=== PATIENT | female | born 1970 | race African-American/Black ===

== ENCOUNTER 2017-01-18 08:55 | Inpatient (IN) ==
--- NOTE | 2017-01-18 09:23 | EKG Report ---
Stationary ECG Study [facility] ER Test Date: 01/18/2017 8:58:29 AM Pat Name: MARCO A AVALOS Department: Room: Gender: F Car Pre Cooler: Reta Medina : 1970 Requested by: Miki Leahy Order Number: [id number] Reading MD: REECE PARKS Intervals [place] Rate: 141 P: 999 TX: 0 QRS: 80 QRSD: 93 T: 31 QT: 305 QTc: 387 Interpretive Statements ATRIAL FIBRILLATION WITH RAPID VENTRICULAR RESPONSE Electronically Signed On 01-19-17 18:25:46 CDT by REECE PARKS [email or web address]
[2017-01-18] MEDS ORDERED: DILTIAZEM 50 MG/10 ML VIAL IV STA (09:35)
[2017-01-18 09:50] LABS: Basophils % 0.4 % (0.0-0.8); Eosinophils # 0.1 10*3/uL (0.0-0.87); Eosinophils % 1.6 % (0.00-10.9); Hematocrit 43.4 VOL% (35.7-47.0); Immature Granulocytes % 0.1 %; Immature Granulocytes Absolute 0.01 #; Lymphocytes # 3.5 10*3/uL (1.4-4.0); Mean Corpuscular HGB Conc 32.3 GM/DL (32-36); Mean Corpuscular Hemoglobin 25 PG (27-34); Mean Corpuscular Volume 77.1 FL (87-102); Mean Platelet Volume 10.4 FL (9.6-12.0); Monocytes # 0.6 10*3/uL (0.11-0.8); Monocytes % 7.4 % (1.7-12.7); Neutrophils % 48.5 % (38.7-73.9); Platelet Count 318 T/CUMM (130-400); Red Blood Count 5.63 MC/CUMM (3.8-5.5); Red Cell Distribution Width 14.5 % (9.3-17.3); White Blood Count 8.2 T/CUMM (4-12)
[2017-01-18] MEDS ORDERED: DILTIAZEM 100 MG VIAL.ADD IV ONE (09:50)
[2017-01-18] MEDS ORDERED: SODIUM CHLORIDE 0.9% 100 ML IV ONE (09:50)
[2017-01-18] MEDS ORDERED: DILTIAZEM 50 MG/10 ML VIAL IV ONE (09:50)
--- NOTE | 2017-01-18 09:54 | XRay Report ---
XR chest 1V portable Indication: Shortness of breath Comparison: 20 November 2014 Findings: The heart and mediastinum are normal in size and configuration. The pulmonary vascularity is normal in caliber. No lung infiltrates, effusions, pneumothorax or other abnormality is demonstrated. Impression: No acute cardiopulmonary disease. PROCEDURE INTERPRETED AT [facility] DEPARTMENT OF RADIOLOGY Final Report Signed by: Dr. Spike Archer
[2017-01-18] MEDS ORDERED: SODIUM CHLORIDE 0.9% 500 ML IV STA (09:57)
[2017-01-18] MEDS ORDERED: DILTIAZEM INJ 100 MG in SODIUM CHLORIDE 0.9% 100 ML IV SCH (10:00)
[2017-01-18 10:11] LABS: Alanine Aminotransferase 21 U/L (13-56); Albumin 3.3 G/DL (3.4-5.0); Alkaline Phosphatase 104 U/L (45-117); Aspartate Amino Transferase 17 U/L (0-37); Bilirubin,Total < 0.39 MG/DL (0.2-1.0); Blood Urea Nitrogen 12 MG/DL (7-18); Calcium 8.7 MG/DL (8.5-10.1); Glucose 132 MG/DL (74-106); Osmolality,Calculated 284.1 MOS/KG (273-304); Potassium 3.8 MMOL/L (3.5-5.1); Sodium 142 MMOL/L (136-145); Total Protein 7.7 G/DL (6.4-8.3); Troponin I Only < 0.015 NG/ML (0.00-0.045)
[2017-01-18 10:18] LABS: PT Patient Result 10.3 SECS
[2017-01-18] MEDS ORDERED: guaiFENesin/DM ER 600-30 MG TABLET PO PRN (11:58)
[2017-01-18] MEDS ORDERED: ONDANSETRON 4 MG/2 ML VIAL IV PRN (11:58)
[2017-01-18] MEDS ORDERED: ZALEPLON 5 MG CAPSULE PO PRN (11:58)
[2017-01-18 12:29] LABS: Risk Ratio 5.71; Thyroid Stimulating Hormone 2.29 uIU/ml (0.358-3.74); VLDL CHOLESTEROL 45.4 MG/DL
--- NOTE | 2017-01-18 12:32 | Emergency Department Note ---
Wilman Sandoval Brittany, am scribing for, and in the presence of, Hleder Middleton MD 09:32. Kane Sandoval Doug C, MD, personally performed the services described in this documentation, ascribed by Ghazal Stovall in my presence, and it is both accurate and complete . Arrival - Arrival Chief Complaint: Chest Pain Stated Complaint: CHEST PAIN/SOB ED Nursing Triage Note: c/o Having chest pain since 299, states the pain woke her up from sleep., denies having nausea., + SOB., Denies the pain radiating to the arm or the neck, states the pain is tightness Mode of Arrival: Ambulatory Limitations: No Limitations Source: Patient, RN Notes Reviewed Time Seen by Provider: 01/18/17 09:12 - History of Present Illness HPI Narrative: Patient is a 46-year-old black female states she was awakened at 3 AM with her heart racing, pounding and substernal chest pain. Patient states the pain has been constant since onset and she has some mild shortness of breath when she denies any nausea, vomiting or diaphoresis. Patient states this is identical to her previous bout of atrial fibrillation she had about 2 years ago. She denies any radiation of her discomfort and she states she is not having any neck arm or shoulder discomfort. She has no history of coronary artery disease and told she had a stress test performed at that time which was unremarkable. She is still on Coumadin and has had a prior history of DVT. She did not get her PT/INR checked last month. Onset (ago): hour(s) (6) Consistency: constant Severity: moderate Severity scale (1-10): 7 Quality: other (pressure) Allergies/Adverse Reactions: Allergies Allergy/AdvReac Type Severity Reaction Status Date / Time No Known Allergies Allergy Verified 01/18/17 08:59 Home Medications: Home Medications Medication Instructions Recorded Confirmed Type Albuterol Inhaler [Proventil 2 puffs INH DIRECTED PRN 05/16/16 05/16/16 History Inhaler] Lisinopril/Hctz 10-12.5 [Prinzide 1 tablet PO DAILY 05/16/16 05/16/16 History 10-12.5] Warfarin [Coumadin] 10 mg PO DAILY@1800 05/16/16 05/16/16 History Review of System - Review of System 12 point system: reviewed and no additional remarkable complaints except as stated - Review of System Constitutional: Absent: chills, diaphoresis, fever, weakness Eyes: Absent: vision change Head/Ears/Nose/Throat: Absent: nasal drainage, sore throat Respiratory: Present: respiratory distress Cardiovascular: Present: chest pain Gastrointestinal: Absent: abdominal pain, nausea, vomiting, diarrhea, constipation Genitourinary female: Absent: dysuria, frequency, urgency Musculoskeletal: Absent: arm pain, back pain, leg pain, neck pain Skin: Absent: rash Neurological: Present: vertigo. Absent: headache Psychiatric: Present: anxiety (stress). Absent: depression Hematological/Lymphatic: Absent: easy bleeding, easy bruising Medical,Surgical,& Family Hx - Medical History Cardio: History of: Cardiac Dysrhythmia (a-fib), Hypertension HEENT: History of: Eye Problem (GLASSES) Respiratory: History of: Asthma, Bronchitis Musculoskeletal: History of: Musculoskeletal Problems (R KNEE PAIN) Hematology: History of: Clotting Problems (DVT RLE) - Surgical History HEENT Surgeries: Surgical HX of: Thyroid Surgery, Tonsilectomy & Adenoidectomy Reproductive Surgeries: Surgical HX of;: Hysterectomy Orthopedic Surgeries: Surgical HX of;: Orthopedic Surgery (R KNEE SCOPE) - Family History Family History: noncontributory - Social History Smoking Status: Never smoker Frequency of Alcohol Use: None Type of Drug Use: None Exam Vital Signs: Vital Signs Temperature 98.3 F 01/18/17 09:05 Pulse Rate 99 H 01/18/17 09:05 Respiratory Rate 18 01/18/17 09:14 Blood Pressure 124/109 01/18/17 09:05 O2 Sat by Pulse Oximetry 100 01/18/17 08:56 - General General appearance: alert, in no apparent distress - Head Head exam: Present: atraumatic, normocephalic - Eye Eye exam: Present: PERRL, EOMI - ENT ENT exam: Present: normal oropharynx, mucous membranes moist - Neck Neck exam: Present: normal inspection, full ROM, trachea midline - Chest Chest inspection: Present: normal inspection, symmetric chest wall rise - Respiratory Respiratory exam: Present: normal lung sounds bilaterally - Cardiovascular Cardiovascular exam: Present: tachycardia, irregular rhythm, normal heart sounds. Absent: regular rate, normal rhythm, murmur, rubs, gallop - Abdominal Exam Abdominal exam: Present: soft, normal bowel sounds. Absent: distention, tenderness - Extremities Exam Extremities exam: Present: normal inspection. Absent: pedal edema - Back Exam Back exam: Present: normal inspection - Neurological Exam Neurological exam: Present: alert, oriented X3, CN II-XII intact. Absent: motor sensory deficit - Psychiatric Psychiatric exam: Present: normal affect, normal mood - Skin Skin exam: Present: warm, dry Course Course Narrative: Patient's clinical presentation laboratory and radiographic findings were discussed with tex Bernard who is covering for the hospitalist service. She was seen here in the emergency room evaluated for admission. Patient was started on IV Cardizem and her heart rates is approximately 100 bpm at present. Results - Labs CBC & BMP: 01/18/17 09:19 01/18/17 09:19 Lab Results: I have reviewed the patients labs Labs: Laboratory Tests 01/18/17 09:19 WBC 8.2 RBC 5.63 H Hgb 14.0 Hct 43.4 MCV 77.1 L MCH 25 L Plt Count 318 Laboratory Tests 01/18/17 09:19 Sodium 142 Potassium 3.8 Chloride 109 H Carbon Dioxide 26 BUN 12 Creatinine 0.70 Glucose 132 H Troponin I < 0.015 Albumin 3.3 L Globulin 4.4 H Albumin/Globulin Ratio 0.7 L TSH 3rd Generation 2.320 Laboratory Tests 01/18/17 09:19 INR 1.0 PT Patient/Control Mix 10.3 - EKG EKG results: interpreted by [facility] EKG shows: atrial fibrillation (141 bpm) - Diagnostic Findings Procedure: Chest x-ray: report reviewed by me (No acute cardiopulmonary disease. ) Disposition Clinical Impression: Atrial fibrillation with rapid ventricular response Case discussed with: patient Disposition: Still a Patient Condition: Stable Time of Disposition: 12:32
--- NOTE | 2017-01-18 12:38 | CT Report ---
CT chest pulmonary embolism Indication: Chest pain Comparison: None available Technique: Axial CT imaging of the chest is performed with intravenous contrast. Contrast dose is 80 cc of Omnipaque 350. Findings: No thrombus or other abnormality is identified in the pulmonary arteries or veins. The pulmonary vessel caliber is within normal limits. The heart, mediastinum and great vessels appear within normal limits. Lung parenchyma shows no evidence of airspace disease or abnormal density. No effusion or pneumothorax is present. Impression: No evidence of pulmonary thromboembolism or other acute process demonstrated. This CT exam was performed using one or more the following dose reduction techniques: Automated exposure control, adjustment of the MA and/or KV according to patient size, or use of iterative reconstruction technique. PROCEDURE INTERPRETED AT [facility] DEPARTMENT OF RADIOLOGY Final Report Signed by: Dr. Spike Archer
--- NOTE | 2017-01-18 12:45 | Hospitalist History & Physical ---
Assessment and Plan - Time spent with patient Time spent with patient: Greater than 30 minutes (1) Atrial fibrillation with RVR Status: Acute Assessment and plan: Admit 01/18/17 - Tele bed - ACUTE A-Fib w/ RVR - chronic a-fib continue and titrate cardiazem infusion CT Chest - done in ER - NO PE Venous Doppler - legs: in progress in the ED 8 - awaiting completion consult cardiology - never seen cardiology per patient Will discuss with Dr Parra for further recommendations of care. Current Visit: Yes (2) Chest pain Status: Acute Current Visit: Yes History of Present Illness Chief complaint: chest tightness, shortness of breath History of present illness: Ms. Kearns is a 46 year old black female w/PMHx of right leg DVT (took coumadin x2 years but is off), Hypertension, and A-Fib presented to the ED for further evaluation of chest tightness and shortness of breath worsened with exertion. She reports similar occurrence 2 years ago and was diagnosed with Afib but has never seen a environmental remediation engineer. She reports having a DVT right leg about 2 years ago and reports treatment with coumadin but that she was taken off her coumadin and is not taking any type blood thinner. She denies any calf/ leg pain. She denies nausea, vomiting, cough, fever, or chills. IN ED: she was given bolus and cardiazem infusion started, heart rate in 80s on infusion. H&H stable. Glucose 132. Toponin negative. CXR: nothing acute. Chest CT: no evidence of pulmonary thrombembolism or acute process noted. Venous doppler in progress. She denies smoking, drug or alcohol use. She lives at home srinath her sons and ambulates without assistance. PCP: Dr Cates After discuss with Dr Middleton in ED and Dr Parra with Hospital Medicine it was agreed to admit patient for further evaluation. Home medications to be reviewed and reconciliation to follow. Home Medications Medication Instructions Recorded Confirmed Type Albuterol Inhaler [Proventil 2 puffs INH DIRECTED PRN 05/16/16 05/16/16 History Inhaler] Lisinopril/Hctz 10-12.5 [Prinzide 1 tablet PO DAILY 05/16/16 05/16/16 History 10-12.5] Warfarin [Coumadin] 10 mg PO DAILY@1800 05/16/16 05/16/16 History Allergies Allergy/AdvReac Type Severity Reaction Status Date / Time No Known Allergies Allergy Verified 01/18/17 08:59 Medical,Surgical,& Family Hx - Medical History Cardio: History of: Cardiac Dysrhythmia (a-fib), Hypertension HEENT: History of: Eye Problem (GLASSES) Respiratory: History of: Bronchitis Musculoskeletal: History of: Musculoskeletal Problems (R KNEE PAIN) Hematology: History of: Clotting Problems (DVT RLE) - Surgical History HEENT Surgeries: Surgical HX of: Thyroid Surgery, Tonsilectomy & Adenoidectomy Reproductive Surgeries: Surgical HX of;: Hysterectomy Orthopedic Surgeries: Surgical HX of;: Orthopedic Surgery (R KNEE SCOPE) - Social History Smoking Status: Never smoker Frequency of Alcohol Use: None Type of Drug Use: None Lives With:: Children Functional capacity: independent ambulation 12 point system: reviewed and no additional remarkable complaints except as stated - Constitutional Constitutional: Absent: chills, fever(s), headache(s) - Cardiovascular Cardiovascular: Present: chest pain at rest, chest pain with activity (chest tightness) - Respiratory Respiratory: Present: dyspnea, dyspnea on exertion. Absent: cough Exam - Constitutional Vitals: Period Temp Pulse Resp BP Sys/Triplett Pulse Ox Last 24 Hr 98.3 F-98.3 F 99-99 16-18 124-124/109-109 100 General appearance: no acute distress, over weight - Head Head exam: Present: normal inspection - Eye Eye exam: Present: EOMI Pupils: Present: GENEVA - Neck Neck exam: Present: normal inspection. Absent: thyromegaly - Respiratory Respiratory exam: Present: clear to auscultation bilaterally. Absent: rhonchi, stridor, wheezes - Cardiovascular Cardiovascular exam: Present: irregular rhythm (afib with HR 80) - GI/Abdominal GI/Abdominal exam: Present: normal bowel sounds, soft. Absent: tenderness, rebound - Extremities Exam Extremities exam: Present: normal inspection, full ROM. Absent: edema - Neurological Exam Neurological exam: Present: alert, oriented X3, CN II-XII intact - Psychiatric Psychiatric exam: Present: normal affect, normal mood. Absent: agitated, anxious - Skin Skin exam: Present: normal color, warm, dry Results - Labs CBC & BMP: 01/18/17 09:19 01/18/17 09:19 Lab Results: I have reviewed the past 24 hour labs - EKG EKG results: interpreted by ERMD - Diagnostic Findings Procedure: Chest x-ray: report reviewed by me (Nothing acute), CT - chest: report reviewed by me (No evidence of pulmonary thromboembolism or other acute process demenstrated)
--- NOTE | 2017-01-18 12:56 | Ultrasound Report ---
Venous Doppler ultrasound bilateral lower extremities Indication: Edema Comparison: None available Findings: No evidence of echogenic, noncompressible thrombus seen in the visualized veins of the extremities. Color Doppler venous waveform pattern is within normal limits. Impression: No evidence of deep venous thrombosis. Ultrasound images stored and captured. PROCEDURE INTERPRETED AT [facility] DEPARTMENT OF RADIOLOGY Final Report Signed by: Dr. Spike Archer
[2017-01-18] MEDS ORDERED: MORPHINE 2 MG/1 ML SYRINGE IV PRN (12:57)
[2017-01-18] MEDS ORDERED: ENOXAPARIN 40 MG/0.4 ML SYRINGE SUBCUT SCH (14:00)
--- NOTE | 2017-01-18 14:03 | Cardiology Consult Note ---
Addendum entered and electronically signed by Maribell Saeed NP 01/18/17 15:13 : Hyperglycemia. Hemoglobin A1c ordered. Addendum entered and electronically signed by Maribell Saeed NP 01/18/17 15:07 : Hypokalemia noted. PO potassium replacement protocol ordered as this could have contributed to her RVR. Magnesium within acceptable range. Thyroid studies normal. Lipid panel reviewed. Triglycerides remarkably high at 227. [place]-3 added. Original Note: Assessment and Plan - Time spent with patient Time spent with patient: Greater than 30 minutes (1) Atrial fibrillation with RVR Status: Acute Assessment and plan: SEE PLAN OF CARE LISTED BELOW. Current Visit: Yes (2) Dyspnea on exertion Status: Chronic Assessment and plan: SEE PLAN OF CARE LISTED BELOW. Current Visit: Yes (3) Orthopnea Status: Acute Assessment and plan: SEE PLAN OF CARE LISTED BELOW. Current Visit: Yes (4) TEENA (obstructive sleep apnea) Status: Chronic Assessment and plan: SEE PLAN OF CARE LISTED BELOW. Current Visit: Yes (5) History of DVT (deep vein thrombosis) Status: Chronic Assessment and plan: SEE PLAN OF CARE LISTED BELOW. Current Visit: No (6) Obesity (BMI 30-39.9) Status: Chronic Assessment and plan: SEE PLAN OF CARE LISTED BELOW. Current Visit: Yes History of Present Illness - Data of Consult Patient: new to practice Consult date: 01/18/17 Requesting Physician: Marleni Hernandez Primary care physician: Franco Cates - Consult Narrative Reason for consult: A. 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 Cardenas PCP: Dr. Neal Ms. Kearns is a 46 year old female without known history of coronary artery disease, not routinely followed by cardiology. Cardiac desserts factors include : Obesity and hypertension. Lifetime non-smoker. No significant family history of CAD. Past medical history includes: Atrial fibrillation, DVT and obstructive sleep apnea (wears CPAP nightly). She reports having a cardiac stress test in 2009 in [place] which was abnormal. Subsequently, she was recommended to have left heart catheterization. This was performed and per her report was unremarkable. This was also performed in [place]. She has not followed up with cardiology since that time. She reports that she was placed on Coumadin for stroke prevention and DVT prophylaxis. However, this was discontinued at least one year ago for unknown reasons. She reports that she never had any bleeding complications with Coumadin. Patient presented to the hospital this morning with complaints of heart palpitations, shortness of breath, chest tightness and dizziness. She reports developing heart racing/palpitations after eating a slushy and developing a brain freeze last night. She had similar case in 2009 when she was diagnosed with atrial fibrillation. She reports that she has been on Coumadin in the past for stroke prevention and DVT prophylaxis. This was discontinued at least one year ago for unknown reasons. She also reports that ever since being diagnosed with A. fib in 2009 she has experienced dyspnea on exertion. She is now longer able to exercise as she did before or even sitting in her [employer] choir. She was worked up for this in [place] with cardiac stress test as well as left heart catheterization. She reports that her heart cath was negative. She is without exertional chest pain, heaviness or tightness. She does confirm orthopnea. No lower extremity swelling. Her palpitations continued until early this morning. This concerned her and she felt that she needed to be further evaluated in the emergency department. Upon arrival to the ER, she was noted to be in A. fib RVR. IV Cardizem was initiated with bolus. She was admitted to telemetry unit under hospital medicine's service. Cardiology was consulted to further assist in her management of A. fib. Patient was seen and examined the telemetry unit. She continues to be in atrial fibrillation, now rate controlled with IV Cardizem. I will transition her to p.o. I have also added beta-blockade. [id number] vasc score 3. I have discussed with patient anticoagulation options. She has opted for Coumadin due to inadequate funds. She does not feel as though she can afford NOAC. Coumadin initiated. Daily INR. Target 2-3. I have also ordered echocardiogram. I will further discuss with Dr. Cardenas and await his additional recommendations. IMPRESSION AND PLAN: 1. ATRIAL FIBRILLATION WITH RAPID VENTRICULAR RESPONSE - This appears to be paroxysmal A. fib. She is currently on IV Cardizem. She is rate controlled with this. I will transition her to p.o. I have also added beta-blockade. [id number] vasc score 3. I have discussed with patient anticoagulation options. She has opted for Coumadin due to inadequate funds. She does not feel as though she can afford NOAC. Coumadin initiated. Daily INR. Target 2-3. Echocardiogram pending. I will further discuss with Dr. Cardenas and await his additional recommendations. 2. OBSTRUCTIVE SLEEP APNEA - CPAP nightly. 3. HISTORY OF DVT - Will begin Coumadin for DVT prophylaxis. 4. CHRONIC DYSPNEA ON EXERTION - She reports dyspnea on exertion ever since she was first diagnosed with atrial fibrillation in 2009. She was worked up for this in 2009 with a stress test and heart catheterization. Heart catheterization was negative per her report. This was done in [place]. At this point, we will order echocardiogram. Await results of this study. Further recommendations to follow. PE has been ruled out. 5. OBESITY - Encouraged weight loss with dietary restriction and regular exercise. 6. ORTHOPNEA - Echocardiogram ordered. CC: Osorio Parra MD - Home Medications and Allergies Home Medications: Home Medications Medication Instructions Recorded Confirmed Type Albuterol Inhaler [Proventil 2 puffs INH DIRECTED PRN 05/16/16 01/18/17 History Inhaler] Olmesartan/Hydrochlorothiazide 0.5 tablet PO BEDTIME 01/18/17 01/18/17 History [Benicar Hct 40-12.5 mg Tablet] Allergies/Adverse Reactions: Allergies Allergy/AdvReac Type Severity Reaction Status Date / Time No Known Allergies Allergy Verified 01/18/17 08:59 - Constitutional Constitutional: Present: as per HPI, daytime sleepiness, fatigue, weakness. Absent: chills, fever(s), frequent falls, lethargy, malaise, weight gain, weight loss - Cardiovascular Cardiovascular: Present: as per HPI, chest pain at rest, dyspnea, dyspnea on exertion, lightheadedness, orthopnea, palpitations. Absent: chest pain with activity, diaphoresis, edema, radiating jaw, neck or arm pain, PND - Respiratory Respiratory: Present: as per HPI, dyspnea, dyspnea on exertion, snoring. Absent : hemoptysis, wheezing, pain on inspiration, change in phlegm color - Gastrointestinal Gastrointestinal: Present: as per HPI. Absent: abdominal pain, change in bowel habits, coffee ground emesis, constipation, diarrhea, heartburn, hematemesis, hematochezia, loose stools, melena, nausea, vomiting - Neurological Neurological: Present: as per HPI, dizziness. Absent: abnormal gait, abnormal speech, behavioral changes, frequent falls, headache(s), syncope - Psychiatric Psychiatric: Present: as per HPI. Absent: anxiety, depression, panic attacks - Hematologic/Lymphatic Hematologic/Lymphatic: Present: as per HPI. Absent: easy bleeding, easy bruising Medical,Surgical,& Family Hx - Medical History Cardio: History of: Cardiac Dysrhythmia (a-fib), Hypertension HEENT: History of: Eye Problem (GLASSES) Respiratory: History of: Asthma, Bronchitis Musculoskeletal: History of: Musculoskeletal Problems (R KNEE PAIN) Hematology: History of: Clotting Problems (DVT RLE) - Surgical History Cardiac Surgeries: Sugical HX of: Cardiac Catheterization Thoracic Surgeries: Patient denies;: Lobectomy HEENT Surgeries: Surgical HX of: Thyroid Surgery, Tonsilectomy & Adenoidectomy Reproductive Surgeries: Surgical HX of;: Gynecologic Surgery, Hysterectomy Orthopedic Surgeries: Surgical HX of;: Orthopedic Surgery (R KNEE SCOPE) - Family History Family History: Reports;: Family Anesthesia Reaction (GRANDMOTHER), Family Cancer (MOTHER FATHER), Family Hypertension (MOTHER SISTER), Additional Family History (SISTER WITH ANEMIA) - Social History Smoking Status: Never smoker Frequency of Alcohol Use: None Type of Drug Use: None Marital Status: Single Lives With:: Alone Functional capacity: independent ambulation Physical Examination Vital Signs Temp Pulse Resp BP Pulse Ox 98.3 F 99 H 16 124/109 100 01/18/17 08:56 01/18/17 08:56 01/18/17 08:56 01/18/17 08:56 01/18/17 08:56 Exam: General: Appears well with no apparent distress. Pleasant and cooperative. Appears comfortable. Obese. HEENT: PERRL, normocephalic, atraumatic. Mucous membranes moist. No jaundice noted. Conjunctiva moist and clear, sclerae anicteric Neck: No JVD/HJR, no thyromegaly or lymphadenopathy noted. No carotid bruit appreciated Cardiac: Irregular rhythm, rate controlled. no murmur rub or gallop. Lungs: Clear to auscultation without accessory muscle use to assist the respiratory pattern. Not requiring oxygen. Abdomen: Soft, bowel sounds normoactive. Obese. Nontender and nondistended. No abdominal bruit or thrill noted. No masses noted. Extremities: No clubbing, cyanosis noted. No edema noted. Upper extremity pulses 2+. Lower extremity pulses 2+. Capillary refill less than 3 seconds. Skin: No unusual lesions or rashes. No skin breakdown appreciated. Neuro: Awake, alert and oriented 3. Moves all extremities well without hemiparesis or paralysis. No essential tremor is appreciated. Result/EKG - Labs CBC & BMP: 01/18/17 09:19 01/18/17 09:19 Lab Results: I have reviewed the past 24 hour labs Labs: Laboratory Results - last 24 hr 01/18/17 01/18/17 01/18/17 09:19 09:19 09:19 WBC 8.2 RBC 5.63 H Hgb 14.0 Hct 43.4 MCV 77.1 L MCH 25 L MCHC 32.3 RDW 14.5 Plt Count 318 MPV 10.4 Neut % (Auto) 48.5 Lymph % (Auto) 42.0 [place] % (Auto) 7.4 Eos % (Auto) 1.6 Baso % (Auto) 0.4 Neut # (Auto) 4.0 Lymph # (Auto) 3.5 [place] # (Auto) 0.6 Eos # (Auto) 0.1 Baso # (Auto) 0.0 Immature Gran % 0.1 Nucleated RBC % 0.0 Immature Gran # 0.01 Nucleated RBCs # 0.00 Immature Plt Fraction 0.0 INR 1.0 PT Patient/Control Mix 10.3 Sodium 142 Potassium 3.8 Chloride 109 H Carbon Dioxide 26 Anion Gap 10.8 BUN 12 Creatinine 0.70 GFR Calculation 163 BUN/Creatinine Ratio 17.00 Glucose 132 H Calculated Osmolality 284.1 Calcium 8.7 Magnesium Total Bilirubin < 0.39 AST 17 ALT 21 Alkaline Phosphatase 104 Troponin I < 0.015 Total Protein 7.7 Albumin 3.3 L Globulin 4.4 H Albumin/Globulin Ratio 0.7 L Triglycerides Cholesterol LDL Cholesterol VLDL Cholesterol HDL Cholesterol Heart Disease Risk Ratio TSH 3rd Generation 2.320 01/18/17 09:19 WBC RBC Hgb Hct MCV MCH MCHC RDW Plt Count MPV Neut % (Auto) Lymph % (Auto) [place] % (Auto) Eos % (Auto) Baso % (Auto) Neut # (Auto) Lymph # (Auto) [place] # (Auto) Eos # (Auto) Baso # (Auto) Immature Gran % Nucleated RBC % Immature Gran # Nucleated RBCs # Immature Plt Fraction INR PT Patient/Control Mix Sodium Potassium Chloride Carbon Dioxide Anion Gap BUN Creatinine GFR Calculation BUN/Creatinine Ratio Glucose Calculated Osmolality Calcium Magnesium 2.0 Total Bilirubin AST ALT Alkaline Phosphatase Troponin I Total Protein Albumin Globulin Albumin/Globulin Ratio Triglycerides 227 H Cholesterol 194 LDL Cholesterol 133.0 VLDL Cholesterol 45.4 HDL Cholesterol 34 L Heart Disease Risk Ratio 5.71 TSH 3rd Generation 2.290 - EKG EKG results: interpreted by me EKG shows: atrial fibrillation
[2017-01-18 15:36] LABS: Apearance,Urine CLEAR (Clear); Bilirubin,Urine Negative (Negative); Blood, Urine Negative (Negative); Glucose,Urine (UA) Negative (Negative); Ketones,Urine Negative (Negative); Mucus,Urine Occasional /LPF (Occasional); Nitrite,Urine Negative (Negative); Protein,Urine Negative; RBC,Urine <1 /HPF (0-4); Squamous Epithelial Cell,Urine Occasional /HPF (0-10); Urine Color Straw (Yellow); Urine Specific Gravity 1.047 (1.001-1.035); Urine Urobilinogen < 2.0 EU/DL (0.2-1.0); WBC,Urine <1 /HPF (0-6)
[2017-01-18] MEDS: DILTIAZEM CD 120 MG CAPSULE PO SCH ×2 (15:47→20:57)
[2017-01-18] MEDS: METOPROLOL SUCCINATE XL 50 MG TABLET PO SCH (15:48)
[2017-01-18] MEDS ORDERED: ENOXAPARIN 80 MG/0.8 ML SYRINGE SUBCUT SCH (16:00)
--- NOTE | 2017-01-18 16:04 | ECHO Report ---
Mickey Kearns Exam Date: 01/18/2017 14:43 Referring Physician: Technologist: Sofiya Ty Age: 46 Ht (in): 60 Wt (lb): 267 Gender: F Exam [facility]: [facility] Echo Indications: chest pain, SOB, A fib, SPK BP: 124 / 109 HR: 286 Rhythm: Atrial fibrillation Technical Quality: IMPRESSIONS Technically adequate study Normal chamber sizes 1+ concentric LVH Hyperdynamic LV systolic function with ejection fraction estimated be 70% without segmental wall motion abnormality No significant valvular abnormality Atrial fibrillation noted with controlled rate MEASUREMENTS (Male / Female) Normal Values 2D ECHO LV Diastolic Diameter PLAX 4.8 cm 4.2 - 5.9 / 3.9 - 5.3 cm LV Systolic Diameter PLAX 2.7 cm LV Fractional Shortening PLAX 43.7 % IVS Diastolic Thickness 1.1 cm 0.6 - 1.0 / 0.6 - 0.9 cm LVPW Diastolic Thickness 1.1 cm 0.6 - 1.0 / 0.6 - 0.9 cm RV Internal Dim ED PLAX 3.3 cm Aortic Root Diameter 2.2 cm LA Systolic Diameter LX 3.2 cm 3.0 - 4.0 / 2.7 - 3.8 cm FINDINGS Left Ventricle Mildly increased septal wall thickness. Mildly increased posterior wall thickness. Mild concentric left ventricular hypertrophy. Left ventricular ejection fraction is estimated at 50-55 %. Right Ventricle Normal right ventricular size. Right Atrium Normal right atrial size. Left Atrium Normal left atrial size. Mitral Valve Morphologically normal mitral valve. Aortic Valve The aortic valve is trileaflet and has normal motion. Tricuspid Valve Morphologically normal tricuspid valve. Pulmonic Valve Morphologically normal pulmonic valve. Pericardium No pericardial effusion. Aorta Normal size aortic root and proximal ascending aorta. Jose Cardenas (Electronically Signed) Final Date: 18 January 2017 16:03
[2017-01-18 17:21] LABS: Barbiturates Screen,Urine Negative (Negative); Benzodiazepines Screen,Urine Negative (Negative); Cannabinoid Screen,Urine Negative (Negative); Opiate Screen,Urine Negative (Negative); Phencyclidine Screen,Urine Negative (Negative)
[2017-01-18] MEDS ORDERED: ALUM/MAG/SIMETH/LIDO VISC 1:1 30 ML BOTTLE PO ONE (17:42)
[2017-01-18] MEDS ORDERED: WARFARIN 5 MG TABLET PO SCH (18:00)
[2017-01-18] MEDS: POTASSIUM CHLORIDE 20 MEQ TABLET PO PRN (19:08)
[2017-01-18] MEDS: DOCUSATE SODIUM 100 MG CAPSULE PO SCH (20:53)
[2017-01-18] MEDS: OMEGA 3 ACID ETHYL ESTERS 1 GM CAPSULE PO SCH (20:53)
[2017-01-18] MEDS: APIXABAN 5 MG TABLET PO SCH (20:57)
[2017-01-19 04:56] LABS: Basophils % 0.4 % (0.0-0.8); Eosinophils # 0.1 10*3/uL (0.0-0.87); Eosinophils % 1.3 % (0.00-10.9); Hematocrit 38.4 VOL% (35.7-47.0); Hemoglobin 12.3 GM/DL (12.0-16.0); Immature Granulocytes % 0.1 %; Immature Granulocytes Absolute 0.01 #; Lymphocytes # 3.5 10*3/uL (1.4-4.0); Lymphocytes % 44.7 % (21.3-54.2); Mean Corpuscular Hemoglobin 25 PG (27-34); Mean Corpuscular Volume 76.6 FL (87-102); Mean Platelet Volume 10.5 FL (9.6-12.0); Monocytes # 0.5 10*3/uL (0.11-0.8); Monocytes % 6.2 % (1.7-12.7); Neutrophils # 3.7 10*3/uL (1.4-7.4); Neutrophils % 47.3 % (38.7-73.9); Platelet Count 282 T/CUMM (130-400); Red Blood Count 5.01 MC/CUMM (3.8-5.5); Red Cell Distribution Width 14.7 % (9.3-17.3); White Blood Count 7.9 T/CUMM (4-12)
[2017-01-19 05:02] LABS: INR 1.1; PT Patient Result 11.1 SECS
[2017-01-19 05:29] LABS: Calcium 8.8 MG/DL (8.5-10.1); Potassium 4.1 MMOL/L (3.5-5.1)
--- NOTE | 2017-01-19 07:31 | EKG Report ---
Stationary ECG Study 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
--- NOTE | 2017-01-19 08:10 | Hospitalist Progress Note ---
Assessment and Plan - Time spent with patient Time spent with patient: Less than 30 minutes (1) Atrial fibrillation with RVR Status: Acute Assessment and plan: 46-year-old -Malaysian female with history of right leg DVT not on anticoagulation, TEENA, hypertension, and A. fib admitted by the hospitalist service on 01/18/2017 with acute A. fib with RVR. Echocardiogram shows EF of 70% , venous Dopplers negative for DVT, and CT the chest negative for PE. Cardiology has been consulted and she has been started on Eliquis for anticoagulation. She is on diltiazem p.o. and metoprolol. She was hypotensive this morning but this is improved to 109/67 at 8 AM. She is bradycardic with a pulse rate in the 50s. Cardiology to see her this morning. Her labs are relatively normal. She does have an elevated hemoglobin A1c of 6.8. Will get diabetes educators consulted and when she follows up with her PCP Dr. Neal he will need to follow her blood sugars as well. Home when cardiology okays. Dr. Parra will see and examine patient and further recommendations to follow. Current Visit: Yes (2) History of DVT (deep vein thrombosis) Status: Chronic Current Visit: No (3) Obesity (BMI 30-39.9) Status: Chronic Current Visit: Yes Hospitalist: Subjective Interval history: Patient states she did not sleep well last night. She states the bed is uncomfortable so she slept on the couch. She is complaining of fatigue and headache this morning. Exam - Constitutional Vitals: Period Temp Pulse Resp BP Sys/Triplett Pulse Ox Last 24 Hr 96.9 F-98.6 F 51-99 16-20 87-152/51-109 94-100 Exam: 46-year-old -Malaysian female, no acute distress, alert and oriented Chest clear CV irregularly irregular, bradycardic Abdomen obese, nontender Extremities no edema Results - Labs CBC & BMP: 01/19/17 04:29 01/19/17 04:29 Lab Results: I have reviewed the past 24 hour labs - EKG EKG shows: bradycardia
[2017-01-19] MEDS: ACETAMINOPHEN 325 MG TABLET PO PRN ×2 (08:26→13:59)
[2017-01-19] MEDS: PANTOPRAZOLE 40 MG TABLET PO SCH (09:23)
[2017-01-19] MEDS: APIXABAN 5 MG TABLET PO SCH ×2 (09:23→20:48)
[2017-01-19] MEDS: DOCUSATE SODIUM 100 MG CAPSULE PO SCH ×2 (09:23→20:48)
--- NOTE | 2017-01-19 09:25 | EKG Report ---
Stationary ECG Study [facility] Test Date: 01/19/2017 9:26:54 AM Pat Name: MARCO A AVALOS Department: Room: 286 Gender: F Emt I/99: : 1970 Requested by: Maribell Saeed Order Number: [id number] Reading MD: ANGELIC GONZALES Intervals [place] Rate: 55 P: 999 NC: 0 QRS: 34 QRSD: 158 T: 183 QT: 485 QTc: 473 Interpretive Statements UNCERTAIN REGULAR RHYTHM LEFT BUNDLE BRANCH BLOCK Electronically Signed On 01-24-17 10:45:25 CDT by ANGELIC GONZALES [email or web address]
[2017-01-19] MEDS: METOPROLOL SUCCINATE XL 50 MG TABLET PO SCH (10:05)
[2017-01-19] MEDS: DILTIAZEM CD 120 MG CAPSULE PO SCH (10:06)
--- NOTE | 2017-01-19 11:25 | Cardiology Progress Note ---
Assessment and Plan (1) Chest pain Status: Acute Assessment and plan: 1. Ms. Ortega is feeling fatigued this morning likely related to her mild bradycardia and her modest hypotension; will discontinue diltiazem and simply treat with Toprol 50 mg daily and observe. 2. She appears to have diabetes with A1c of 6.8, and so tomorrow could reintroduce ARB if blood pressure allows? 3. Continue Eliquis, told her to make sure that she gets her free 30 day card before she leaves. 4. She can be discharged tomorrow if she is doing reasonably well clinically " I think I am too scared to go home now" 5. Check electrolytes and hematocrit in the morning 6. Atypical chest pain yesterday evening improved with GI cocktail, and I highly suspect it is related to GERD. Current Visit: Yes (2) Atrial fibrillation with RVR Status: Acute Current Visit: Yes (3) History of DVT (deep vein thrombosis) Status: Chronic Current Visit: No Cardiology - PN: Subj Interval history: She had some chest pain yesterday that improved with GI cocktail in the evening. Her troponins have been negative. Her only complaint today is fatigue. She denies any chest discomfort or shortness of breath now. Her blood pressure heart rate are both a little low earlier this morning. Exam (Progress Note) - Constitutional Vitals: Period Temp Pulse Resp BP Sys/Triplett Pulse Ox Last 24 Hr 96.9 F-98.6 F 51-86 18-20 87-152/51-105 94-98 - Head Head exam: Present: normal inspection, normocephalic, atraumatic - Respiratory Respiratory exam: Present: clear to auscultation bilaterally. Absent: stridor, wheezes - Cardiovascular Cardiovascular exam: Present: irregular rhythm. Absent: diastolic murmur, rubs , systolic murmur - GI/Abdominal GI/Abdominal exam: Present: soft. Absent: tenderness - Extremities Exam Extremities exam: Absent: edema Result/EKG - Labs CBC & BMP: 01/19/17 04:29 01/19/17 04:29 Labs: Laboratory Results - last 24 hr 01/18/17 01/18/17 01/18/17 09:19 15:27 18:39 WBC RBC Hgb Hct MCV MCH MCHC RDW Plt Count MPV Neut % (Auto) Lymph % (Auto) [place] % (Auto) Eos % (Auto) Baso % (Auto) Neut # (Auto) Lymph # (Auto) [place] # (Auto) Eos # (Auto) Baso # (Auto) Immature Gran % Nucleated RBC % Immature Gran # Nucleated RBCs # Immature Plt Fraction INR PT Patient/Control Mix Sodium Potassium Chloride Carbon Dioxide Anion Gap BUN Creatinine GFR Calculation BUN/Creatinine Ratio Glucose Hemoglobin A1c 6.8 H Calculated Osmolality Calcium Magnesium 2.0 Troponin I < 0.015 B-Natriuretic Peptide Triglycerides 227 H Cholesterol 194 LDL Cholesterol 133.0 VLDL Cholesterol 45.4 HDL Cholesterol 34 L Heart Disease Risk Ratio 5.71 TSH 3rd Generation 2.290 Urine Color Urine Appearance Urine pH Ur Specific [place] Urine Protein Urine Glucose (UA) Urine Ketones Urine Blood Urine Nitrate Urine Bilirubin Urine Urobilinogen Urine Leukocytes Urine RBC Urine WBC Ur Squamous Epith Cells Urine Mucus Ur Culture Indicated? Urine Opiates Screen Ur Barbiturates Screen Ur Phencyclidine Scrn U Amphetamine/Methamph U Benzodiazepines Scrn U Cocaine Metab Screen U Cannabinoids Screen 01/18/17 01/18/17 01/18/17 21:08 Unknown Unknown WBC RBC Hgb Hct MCV MCH MCHC RDW Plt Count MPV Neut % (Auto) Lymph % (Auto) [place] % (Auto) Eos % (Auto) Baso % (Auto) Neut # (Auto) Lymph # (Auto) [place] # (Auto) Eos # (Auto) Baso # (Auto) Immature Gran % Nucleated RBC % Immature Gran # Nucleated RBCs # Immature Plt Fraction INR PT Patient/Control Mix Sodium Potassium Chloride Carbon Dioxide Anion Gap BUN Creatinine GFR Calculation BUN/Creatinine Ratio Glucose Hemoglobin A1c Calculated Osmolality Calcium Magnesium Troponin I < 0.015 B-Natriuretic Peptide Triglycerides Cholesterol LDL Cholesterol VLDL Cholesterol HDL Cholesterol Heart Disease Risk Ratio TSH 3rd Generation Urine Color Straw Urine Appearance Clear Urine pH 7.0 Ur Specific [place] 1.047 H Urine Protein Negative Urine Glucose (UA) Negative Urine Ketones Negative Urine Blood Negative Urine Nitrate Negative Urine Bilirubin Negative Urine Urobilinogen < 2.0 H Urine Leukocytes Negative Urine RBC <1 Urine WBC <1 Ur Squamous Epith Cells Occasional Urine Mucus Occasional Ur Culture Indicated? Not indicated Urine Opiates Screen Negative Ur Barbiturates Screen Negative Ur Phencyclidine Scrn Negative U Amphetamine/Methamph Negative U Benzodiazepines Scrn Negative U Cocaine Metab Screen Negative U Cannabinoids Screen Negative 01/19/17 01/19/17 01/19/17 00:03 04:29 04:29 WBC RBC Hgb Hct MCV MCH MCHC RDW Plt Count MPV Neut % (Auto) Lymph % (Auto) [place] % (Auto) Eos % (Auto) Baso % (Auto) Neut # (Auto) Lymph # (Auto) [place] # (Auto) Eos # (Auto) Baso # (Auto) Immature Gran % Nucleated RBC % Immature Gran # Nucleated RBCs # Immature Plt Fraction INR 1.1 PT Patient/Control Mix 11.1 Sodium Potassium Chloride Carbon Dioxide Anion Gap BUN Creatinine GFR Calculation BUN/Creatinine Ratio Glucose Hemoglobin A1c Calculated Osmolality Calcium Magnesium 2.1 Troponin I < 0.015 B-Natriuretic Peptide Triglycerides Cholesterol LDL Cholesterol VLDL Cholesterol HDL Cholesterol Heart Disease Risk Ratio TSH 3rd Generation Urine Color Urine Appearance Urine pH Ur Specific [place] Urine Protein Urine Glucose (UA) Urine Ketones Urine Blood Urine Nitrate Urine Bilirubin Urine Urobilinogen Urine Leukocytes Urine RBC Urine WBC Ur Squamous Epith Cells Urine Mucus Ur Culture Indicated? Urine Opiates Screen Ur Barbiturates Screen Ur Phencyclidine Scrn U Amphetamine/Methamph U Benzodiazepines Scrn U Cocaine Metab Screen U Cannabinoids Screen 01/19/17 01/19/17 01/19/17 04:29 04:29 04:29 WBC 7.9 RBC 5.01 Hgb 12.3 Hct 38.4 MCV 76.6 L MCH 25 L MCHC 32.0 RDW 14.7 Plt Count 282 MPV 10.5 Neut % (Auto) 47.3 Lymph % (Auto) 44.7 [place] % (Auto) 6.2 Eos % (Auto) 1.3 Baso % (Auto) 0.4 Neut # (Auto) 3.7 Lymph # (Auto) 3.5 [place] # (Auto) 0.5 Eos # (Auto) 0.1 Baso # (Auto) 0.0 Immature Gran % 0.1 Nucleated RBC % 0.0 Immature Gran # 0.01 Nucleated RBCs # 0.00 Immature Plt Fraction 0.0 INR PT Patient/Control Mix Sodium 143 Potassium 4.1 Chloride 110 H Carbon Dioxide 26 Anion Gap 11.1 BUN 11 Creatinine 0.60 GFR Calculation 171 BUN/Creatinine Ratio 18.00 Glucose 120 H Hemoglobin A1c Calculated Osmolality 284.0 Calcium 8.8 Magnesium Troponin I B-Natriuretic Peptide 111 H Triglycerides Cholesterol LDL Cholesterol VLDL Cholesterol HDL Cholesterol Heart Disease Risk Ratio TSH 3rd Generation Urine Color Urine Appearance Urine pH Ur Specific [place] Urine Protein Urine Glucose (UA) Urine Ketones Urine Blood Urine Nitrate Urine Bilirubin Urine Urobilinogen Urine Leukocytes Urine RBC Urine WBC Ur Squamous Epith Cells Urine Mucus Ur Culture Indicated? Urine Opiates Screen Ur Barbiturates Screen Ur Phencyclidine Scrn U Amphetamine/Methamph U Benzodiazepines Scrn U Cocaine Metab Screen U Cannabinoids Screen 01/19/17 04:29 WBC RBC Hgb Hct MCV MCH MCHC RDW Plt Count MPV Neut % (Auto) Lymph % (Auto) [place] % (Auto) Eos % (Auto) Baso % (Auto) Neut # (Auto) Lymph # (Auto) [place] # (Auto) Eos # (Auto) Baso # (Auto) Immature Gran % Nucleated RBC % Immature Gran # Nucleated RBCs # Immature Plt Fraction INR PT Patient/Control Mix Sodium 143 Potassium 4.1 Chloride 110 H Carbon Dioxide 27 Anion Gap 10.1 BUN 12 Creatinine 0.70 GFR Calculation 162 BUN/Creatinine Ratio 17.00 Glucose 123 H Hemoglobin A1c Calculated Osmolality 285.0 Calcium 8.8 Magnesium 2.0 Troponin I B-Natriuretic Peptide Triglycerides Cholesterol LDL Cholesterol VLDL Cholesterol HDL Cholesterol Heart Disease Risk Ratio TSH 3rd Generation Urine Color Urine Appearance Urine pH Ur Specific [place] Urine Protein Urine Glucose (UA) Urine Ketones Urine Blood Urine Nitrate Urine Bilirubin Urine Urobilinogen Urine Leukocytes Urine RBC Urine WBC Ur Squamous Epith Cells Urine Mucus Ur Culture Indicated? Urine Opiates Screen Ur Barbiturates Screen Ur Phencyclidine Scrn U Amphetamine/Methamph U Benzodiazepines Scrn U Cocaine Metab Screen U Cannabinoids Screen
[2017-01-19] MEDS: OMEGA 3 ACID ETHYL ESTERS 1 GM CAPSULE PO SCH (20:48)
[2017-01-20 04:35] LABS: Basophils % 0.3 % (0.0-0.8); Eosinophils # 0.1 10*3/uL (0.0-0.87); Eosinophils % 1.5 % (0.00-10.9); Hemoglobin 12.2 GM/DL (12.0-16.0); Immature Granulocytes % 0.2 %; Immature Granulocytes Absolute 0.02 #; Lymphocytes # 3.5 10*3/uL (1.4-4.0); Lymphocytes % 39.7 % (21.3-54.2); Mean Corpuscular HGB Conc 32.1 GM/DL (32-36); Mean Corpuscular Hemoglobin 25 PG (27-34); Mean Corpuscular Volume 76.9 FL (87-102); Mean Platelet Volume 10.6 FL (9.6-12.0); Monocytes # 0.7 10*3/uL (0.11-0.8); Monocytes % 8.1 % (1.7-12.7); Neutrophils # 4.5 10*3/uL (1.4-7.4); Neutrophils % 50.2 % (38.7-73.9); Platelet Count 267 T/CUMM (130-400); Red Blood Count 4.94 MC/CUMM (3.8-5.5); Red Cell Distribution Width 14.6 % (9.3-17.3); White Blood Count 8.9 T/CUMM (4-12)
[2017-01-20 05:03] LABS: Calcium 8.5 MG/DL (8.5-10.1); Magnesium 1.9 MG/DL (1.8-2.4); Potassium 3.8 MMOL/L (3.5-5.1)
[2017-01-20 08:21] VITALS: BP 125/63
[2017-01-20] MEDS: DOCUSATE SODIUM 100 MG CAPSULE PO SCH (08:54)
[2017-01-20] MEDS: PANTOPRAZOLE 40 MG TABLET PO SCH (08:54)
[2017-01-20] MEDS: APIXABAN 5 MG TABLET PO SCH (08:54)
[2017-01-20] MEDS: METOPROLOL SUCCINATE XL 50 MG TABLET PO SCH (08:54)
[2017-01-20] MEDS: POTASSIUM CHLORIDE 20 MEQ TABLET PO PRN ×2 (08:54→10:46)
[2017-01-20] MEDS: ACETAMINOPHEN 325 MG TABLET PO PRN (09:13)
--- NOTE | 2017-01-20 09:36 | Cardiology Progress Note ---
Assessment and Plan (1) Chest pain Status: Acute Assessment and plan: 1. Ms. Ortega is feeling fatigued this morning likely related to her mild bradycardia and her modest hypotension; will discontinue diltiazem and simply treat with Toprol 50 mg daily and observe. 2. She appears to have diabetes with A1c of 6.8, and so tomorrow could reintroduce ARB if blood pressure allows? 3. Continue Eliquis, told her to make sure that she gets her free 30 day card before she leaves. 4. She can be discharged tomorrow if she is doing reasonably well clinically " I think I am too scared to go home now" 5. Check electrolytes and hematocrit in the morning 6. Atypical chest pain yesterday evening improved with GI cocktail, and I highly suspect it is related to GERD. January 20, 2017: 1. Ms. Owens is hemodynamic is stable doing very well clinically and is anxious for discharge. 2. She appears to be in sinus rhythm this morning on telemetry; check EKG 3. She can be discharged from cardiac standpoint and follow-up with me in about 2 weeks or so with lab 4. I have asked her to use a free 30 day Eliquis card, and to call her insurance Saturday to see what the cost of it will be, and if it is prohibitively expensive to ask what the alternative direct oral anticoagulant would be for her insurance. Current Visit: Yes (2) Atrial fibrillation with RVR Status: Acute Current Visit: Yes (3) History of DVT (deep vein thrombosis) Status: Chronic Current Visit: No Cardiology - PN: Subj Interval history: Ms. Owens feels great and has no complaints. She has no chest discomfort dyspnea or fatigue. She is sitting up in bed smiling. She is anxious for discharge. Exam (Progress Note) - Constitutional Vitals: Period Temp Pulse Resp BP Sys/Triplett Pulse Ox Last 24 Hr 97.2 F-98.9 F 53-69 16-20 106-134/46-77 93-98 General appearance: no acute distress, over weight - Head Head exam: Present: normal inspection, normocephalic, atraumatic - Neck Neck exam: Present: normal inspection - Respiratory Respiratory exam: Present: clear to auscultation bilaterally. Absent: stridor, wheezes - Cardiovascular Cardiovascular exam: Present: regular rate and rhythm. Absent: diastolic murmur , rubs - GI/Abdominal GI/Abdominal exam: Present: soft. Absent: tenderness - Extremities Exam Extremities exam: Absent: edema Result/EKG - Labs CBC & BMP: 01/20/17 03:19 01/20/17 03:19 Labs: Laboratory Results - last 24 hr 01/20/17 01/20/17 03:19 03:19 WBC 8.9 RBC 4.94 Hgb 12.2 Hct 38.0 MCV 76.9 L MCH 25 L MCHC 32.1 RDW 14.6 Plt Count 267 MPV 10.6 Neut % (Auto) 50.2 Lymph % (Auto) 39.7 [place] % (Auto) 8.1 Eos % (Auto) 1.5 Baso % (Auto) 0.3 Neut # (Auto) 4.5 Lymph # (Auto) 3.5 [place] # (Auto) 0.7 Eos # (Auto) 0.1 Baso # (Auto) 0.0 Immature Gran % 0.2 Nucleated RBC % 0.0 Immature Gran # 0.02 Nucleated RBCs # 0.00 Immature Plt Fraction 0.0 Sodium 143 Potassium 3.8 Chloride 110 H Carbon Dioxide 26 Anion Gap 10.8 BUN 13 Creatinine 0.60 GFR Calculation 171 BUN/Creatinine Ratio 21.00 H Glucose 135 H Calculated Osmolality 286.0 Calcium 8.5 Magnesium 1.9 Specialty Discharge - Follow Up or Referrals Follow up with: Jose Cardenas MD [Physician] - 2 Weeks (With EKG FLP CMP CBC TSH)
--- NOTE | 2017-01-20 09:48 | EKG Report ---
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
--- NOTE | 2017-01-20 10:33 | Discharge Summary ---
Hospital Course - Hospital Course Hospital Course: The patient has recently moved home from [place]. She does not have a primary care provider. The patient came to the hospital with palpitations and was found to be in atrial fibrillation. She says this happened for the first time about a year and half ago and was short-lived. The patient was admitted to the hospital for rate control and was started on Eliquis for anticoagulation. The patient converted to sinus rhythm spontaneously after 12 hours. The patient rested well last night and is now ready for discharge home and follow-up with Dr. Zapien as an outpatient. The patient will continue on anticoagulation to reduce the risk of stroke with intermittent atrial fibrillation. On the date of discharge, chest is clear, heart has regular rate and rhythm, and abdomen soft. Patient medications were reconciled upon admission, and again at the time of discharge. The patient was screened for tobacco use and found to be a occasional smoker. The patient was given 4 minutes of tobacco avoidance education. The patient's medical decsion maker is themself, and when asked, they asked to be Full code. Discharge Time was 31 minutes, including final examination, evaluation and planning, education, reconciliation of medications, writing prescriptions, coordinating care with complex case manager, and preparing discharge documentation. - Time spent with patient Time with patient DS: Greater than 30 minutes Time spent discussing smoking cessation with patient: 3 to 10 minutes Diagnosis - Discharge Diagnosis (1) Atrial fibrillation with rapid ventricular response Status: Resolved (2) History of DVT (deep vein thrombosis) Status: Chronic (3) Obesity (BMI 30-39.9) Status: Chronic Specialty Discharge - Follow Up or Referrals Follow up with: Jose Cardenas MD [Physician] - 2 Weeks (With EKG FLP CMP CBC TSH) Discharge Plan - Discharge Data Disposition: Disch To Home/Self Care Condition at Discharge: Stable Discharge Diet: advance to your usual diet Activity: resume usual activities as tolerated - Discharge Medications [place] 3 Acid Ethyl Esters [Lovaza] 4 gm PO BEDTIME #30 capsule Apixaban [Eliquis] 5 mg PO BID #60 tablet Metoprolol Succinate Xl [Toprol Xl] 50 mg PO DAILY #60 tablet Continue Albuterol Inhaler [Proventil Inhaler] 2 puffs INH DIRECTED PRN PRN Reason: BRONCHITIS Discontinued Olmesartan/Hydrochlorothiazide [Benicar Hct 40-12.5 mg Tablet] 0.5 tablet PO BEDTIME - Follow Up or Referral Follow Up: Jose Cardenas MD [Physician] - 2 Weeks (With EKG FLP CMP CBC TSH) - Forms/Instructions Exam - Constitutional Vitals: Period Temp Pulse Resp BP Sys/Triplett Pulse Ox Last 24 Hr 97.2 F-98.9 F 53-69 16-20 106-134/46-77 93-98 Discharge Results Procedures and tests throughout hospitalization: Pending Orders 01/21/17 04:00 BMP w/ Mg [Basic Metabolic Panel w/Mg] IN AM CBC [Comp Blood Count Auto Diff] IN AM Labs on day of discharge: Labs from last 24 hours 01/20/17 01/20/17 03:19 03:19 WBC 8.9 RBC 4.94 Hgb 12.2 Hct 38.0 MCV 76.9 L MCH 25 L MCHC 32.1 RDW 14.6 Plt Count 267 MPV 10.6 Neut % (Auto) 50.2 Lymph % (Auto) 39.7 [place] % (Auto) 8.1 Eos % (Auto) 1.5 Baso % (Auto) 0.3 Neut # (Auto) 4.5 Lymph # (Auto) 3.5 [place] # (Auto) 0.7 Eos # (Auto) 0.1 Baso # (Auto) 0.0 Immature Gran % 0.2 Nucleated RBC % 0.0 Immature Gran # 0.02 Nucleated RBCs # 0.00 Immature Plt Fraction 0.0 Sodium 143 Potassium 3.8 Chloride 110 H Carbon Dioxide 26 Anion Gap 10.8 BUN 13 Creatinine 0.60 GFR Calculation 171 BUN/Creatinine Ratio 21.00 H Glucose 135 H Calculated Osmolality 286.0 Calcium 8.5 Magnesium 1.9 DS: Provider Date of admission: 01/18/17 11:54 Primary care physician: Franco Cates MD Attending physician on admission: Osorio Parra MD Consults: 01/18/17 12:57 Consult to Physician [CONS] Routine Comment: Consulting Provider: Jose Cardenas When should Consulting Provider be notified: Now Consult Notification Comment: AFib w/ RVR - Cardiazem infusion started Hx: HTN, A Fib (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
== END 2017-01-20 12:01 | disposition home or self-care (01) | DRG 310 ==
LOC: N.ED 08:55 → N.EDINP 11:54 → N.TELEN 13:31
PROVIDERS: ADMIT Internal Medicine; ATTEND Internal Medicine

== ENCOUNTER 2017-06-01 23:42 | Inpatient (IN) ==
[2017-06-02] MEDS ORDERED: DILTIAZEM 50 MG/10 ML VIAL IV STA (00:26)
[2017-06-02] MEDS ORDERED: DILTIAZEM 100 MG VIAL.ADD IV ONE (01:11)
[2017-06-02] MEDS ORDERED: DILTIAZEM 50 MG/10 ML VIAL IV ONE (01:19)
[2017-06-02] MEDS ORDERED: SODIUM CHLORIDE 0.9% 100 ML IV ONE (01:20)
[2017-06-02] MEDS: DILTIAZEM INJ 100 MG in SODIUM CHLORIDE 0.9% 100 ML IV SCH (01:36)
[2017-06-02 01:52] LABS: Basophils % 0.5 % (0.0-0.8); Eosinophils # 0.1 10*3/uL (0.0-0.87); Eosinophils % 1.6 % (0.00-10.9); Hematocrit 38.9 VOL% (35.7-47.0); Hemoglobin 12.5 GM/DL (12.0-16.0); Immature Granulocytes % 0.7 %; Immature Granulocytes Absolute 0.06 #; Lymphocytes # 3.2 10*3/uL (1.4-4.0); Lymphocytes % 37.3 % (21.3-54.2); Mean Corpuscular HGB Conc 32.1 GM/DL (32-36); Mean Corpuscular Hemoglobin 25 PG (27-34); Mean Corpuscular Volume 76.3 FL (87-102); Mean Platelet Volume 10.3 FL (9.6-12.0); Monocytes # 0.6 10*3/uL (0.11-0.8); Monocytes % 6.6 % (1.7-12.7); Neutrophils # 4.6 10*3/uL (1.4-7.4); Neutrophils % 53.3 % (38.7-73.9); Platelet Count 250 T/CUMM (130-400); Red Cell Distribution Width 16.2 % (9.3-17.3); White Blood Count 8.6 T/CUMM (4-12)
[2017-06-02 02:18] LABS: Alanine Aminotransferase 23 U/L (13-56); Albumin 3.5 G/DL (3.4-5.0); Alkaline Phosphatase 105 U/L (45-117); Aspartate Amino Transferase 18 U/L (0-37); Bilirubin,Total < 0.39 MG/DL (0.2-1.0); Blood Urea Nitrogen 15 MG/DL (7-18); Calcium 9.3 MG/DL (8.5-10.1); Glucose 97 MG/DL (74-106); Osmolality,Calculated 288.7 MOS/KG (273-304); Potassium 3.8 MMOL/L (3.5-5.1); Sodium 145 MMOL/L (136-145); Total Protein 7.2 G/DL (6.4-8.3)
[2017-06-02] MEDS ORDERED: SODIUM CHLORIDE 0.9% 1,000 ML IV STA (04:21)
[2017-06-02] MEDS ORDERED: MAGNESIUM SULF RIDER 2 GM in PREMIX 1 EACH IV PRN (04:26)
[2017-06-02] MEDS ORDERED: MAGNESIUM SULF RIDER 4 GM in PREMIX 1 EACH IV PRN (04:26)
[2017-06-02] MEDS: ACETAMINOPHEN 325 MG TABLET PO PRN ×2 (09:02→15:06)
[2017-06-02] MEDS: SOTALOL 80 MG TABLET PO SCH ×2 (10:33→21:11)
[2017-06-02] MEDS ORDERED: ALBUTEROL 2.5 MG/3 ML NEB RESP TX PRN (15:25)
[2017-06-02] MEDS ORDERED: ACETAMINOPHEN 500 MG TABLET PO PRN (15:25)
[2017-06-02] MEDS ORDERED: POTASSIUM CHLORIDE 20 MEQ PACK PO ONE (15:26)
[2017-06-02 16:55] LABS: Troponin I Only < 0.015 NG/ML (0.00-0.045)
[2017-06-02] MEDS ORDERED: OMEGA 3 ACID ETHYL ESTERS 1 GM CAPSULE PO SCH (21:00)
[2017-06-02] MEDS: APIXABAN 5 MG TABLET PO SCH (21:11)
[2017-06-02 22:07] LABS: Troponin I Only < 0.015 NG/ML (0.00-0.045)
[2017-06-03] MEDS: DILTIAZEM INJ 100 MG in SODIUM CHLORIDE 0.9% 100 ML IV SCH (00:51)
[2017-06-03 05:37] LABS: Troponin I Only < 0.015 NG/ML (0.00-0.045)
[2017-06-03] MEDS ORDERED: SOTALOL 80 MG TABLET PO SCH (08:31)
[2017-06-03] MEDS: APIXABAN 5 MG TABLET PO SCH (08:56)
[2017-06-03 12:40] VITALS: BP 121/70
== END 2017-06-03 15:45 | disposition home or self-care (01) | DRG 310 ==
LOC: N.ED 23:42 → N.EDINP 06-02 04:26 → N.TELES 06-02 06:40
PROVIDERS: ADMIT Internal Medicine Cardiovascular Disease; ATTEND Internal Medicine Cardiovascular Disease

== ENCOUNTER 2017-10-26 10:18 | Inpatient (IN) ==
[2017-10-26] MEDS ORDERED: MORPHINE 4 MG/1 ML VIAL IV STA (10:42)
[2017-10-26] MEDS ORDERED: ASPIRIN 325 MG TABLET PO STA (10:42)
[2017-10-26] MEDS ORDERED: NITROGLYCERIN SL 0.4 MG TABLET SL PRN (10:42)
[2017-10-26] MEDS ORDERED: ASPIRIN CHEW 81 MG TABLET PO STA (10:48)
[2017-10-26 11:06] LABS: Basophils % 0.4 % (0.0-0.8); Eosinophils # 0.1 10*3/uL (0.0-0.87); Eosinophils % 1.4 % (0.00-10.9); Hematocrit 39.6 VOL% (35.7-47.0); Hemoglobin 12.5 GM/DL (12.0-16.0); Immature Granulocytes % 0.3 %; Immature Granulocytes Absolute 0.02 #; Lymphocytes # 2.5 10*3/uL (1.4-4.0); Lymphocytes % 31.6 % (21.3-54.2); Mean Corpuscular HGB Conc 31.6 GM/DL (32-36); Mean Corpuscular Hemoglobin 25 PG (27-34); Mean Corpuscular Volume 77.6 FL (87-102); Mean Platelet Volume 9.7 FL (9.6-12.0); Monocytes # 0.5 10*3/uL (0.11-0.8); Neutrophils # 4.7 10*3/uL (1.4-7.4); Neutrophils % 60.3 % (38.7-73.9); Platelet Count 250 T/CUMM (130-400); Red Cell Distribution Width 15.9 % (9.3-17.3); White Blood Count 7.8 T/CUMM (4-12)
[2017-10-26 11:23] LABS: Calcium 8.5 MG/DL (8.5-10.1); Potassium 3.8 MMOL/L (3.5-5.1)
[2017-10-26] MEDS ORDERED: KETOROLAC 30 MG/1 ML VIAL IV STA (14:51)
[2017-10-26] MEDS ORDERED: ONDANSETRON 4 MG/2 ML VIAL IV PRN (16:37)
[2017-10-26] MEDS ORDERED: DOCUSATE SODIUM 100 MG CAPSULE PO PRN (16:37)
[2017-10-26] MEDS ORDERED: ALBUTEROL 2.5 MG/3 ML NEB RESP TX PRN (16:40)
[2017-10-26] MEDS: SOTALOL 80 MG TABLET PO SCH (21:50)
[2017-10-26] MEDS: APIXABAN 5 MG TABLET PO SCH (21:51)
[2017-10-26] MEDS: ASPIRIN EC 325 MG TABLET PO SCH (21:51)
[2017-10-27] MEDS: ACETAMINOPHEN 325 MG TABLET PO PRN ×2 (03:08→08:02)
[2017-10-27 04:16] LABS: Basophils % 0.5 % (0.0-0.8); Eosinophils # 0.2 10*3/uL (0.0-0.87); Hematocrit 37.9 VOL% (35.7-47.0); Hemoglobin 12.2 GM/DL (12.0-16.0); Immature Granulocytes % 0.2 %; Immature Granulocytes Absolute 0.02 #; Lymphocytes # 3.3 10*3/uL (1.4-4.0); Lymphocytes % 37.1 % (21.3-54.2); Mean Corpuscular HGB Conc 32.2 GM/DL (32-36); Mean Corpuscular Hemoglobin 25 PG (27-34); Mean Corpuscular Volume 76.7 FL (87-102); Monocytes # 0.6 10*3/uL (0.11-0.8); Neutrophils # 4.7 10*3/uL (1.4-7.4); Neutrophils % 53.2 % (38.7-73.9); Platelet Count 242 T/CUMM (130-400); Red Blood Count 4.94 MC/CUMM (3.8-5.5); Red Cell Distribution Width 15.9 % (9.3-17.3); White Blood Count 8.9 T/CUMM (4-12)
[2017-10-27 04:47] LABS: Calcium 8.2 MG/DL (8.5-10.1); Potassium 3.7 MMOL/L (3.5-5.1)
[2017-10-27] MEDS: PANTOPRAZOLE 40 MG TABLET PO SCH (08:01)
[2017-10-27] MEDS: SOTALOL 80 MG TABLET PO SCH ×2 (08:01→20:23)
[2017-10-27] MEDS: APIXABAN 5 MG TABLET PO SCH ×2 (08:01→20:23)
[2017-10-27] MEDS ORDERED: SOTALOL 80 MG TABLET PO ONE (09:50)
[2017-10-27] MEDS: NAPROXEN 250 MG TABLET PO SCH ×2 (10:31→20:23)
[2017-10-27] MEDS: ACETAMINOPHEN 325 MG TABLET PO SCH ×2 (10:32→20:23)
[2017-10-27] MEDS: GABAPENTIN 100 MG CAPSULE PO SCH ×3 (10:32→20:23)
[2017-10-27] MEDS: ASPIRIN EC 325 MG TABLET PO SCH (20:22)
[2017-10-28] MEDS: NAPROXEN 250 MG TABLET PO SCH (08:43)
[2017-10-28] MEDS: GABAPENTIN 100 MG CAPSULE PO SCH (08:44)
[2017-10-28] MEDS: APIXABAN 5 MG TABLET PO SCH (08:44)
[2017-10-28] MEDS: PANTOPRAZOLE 40 MG TABLET PO SCH (08:44)
[2017-10-28] MEDS: ACETAMINOPHEN 325 MG TABLET PO SCH (08:44)
[2017-10-28] MEDS: SOTALOL 80 MG TABLET PO SCH (08:44)
[2017-10-28] MEDS ORDERED: METOPROLOL SUCCINATE XL 25 MG TABLET PO SCH (11:00)
[2017-10-28 11:43] VITALS: BP 141/91
== END 2017-10-28 15:55 | disposition home or self-care (01) | DRG 313 ==
LOC: N.ED 10:18 → N.EDINP 10:18 → N.TELES 17:23 → SUATTDRO 10-27 09:52
PROVIDERS: ADMIT Internal Medicine Geriatric Medicine; ATTEND Internal Medicine

== ENCOUNTER 2020-03-25 18:47 | Observation (INO) ==
[2020-03-25] MEDS ORDERED: SODIUM CHLORIDE 0.9% 1,000 ML IV STA (19:01)
[2020-03-25 19:18] LABS: Basophils % 0.3 % (0.0-0.8); Eosinophils % 0.1 % (0.00-10.9); Hematocrit 42.7 VOL% (35.7-47.0); Hemoglobin 13.5 GM/DL (12.0-16.0); Immature Granulocytes % 0.1 %; Immature Granulocytes Absolute 0.01 #; Lymphocytes % 26.9 % (21.3-54.2); Mean Corpuscular HGB Conc 31.6 GM/DL (32-36); Mean Corpuscular Volume 78.5 FL (87-102); Mean Platelet Volume 10.5 FL (9.6-12.0); Monocytes % 4.7 % (1.7-12.7); Neutrophils % 67.9 % (38.7-73.9); Platelet Count 209 T/CUMM (130-400); Red Blood Count 5.44 MC/CUMM (3.8-5.5); White Blood Count 7.6 T/CUMM (4-12)
[2020-03-25 19:30] LABS: PT Patient Result 10.5 SECS (9.8-11.9)
[2020-03-25 19:39] LABS: Alanine Aminotransferase 25 U/L (13-56); Albumin 3.3 G/DL (3.4-5.0); Alkaline Phosphatase 72 U/L (45-117); Aspartate Amino Transferase 31 U/L (0-37); Bilirubin,Total < 0.39 MG/DL (0.2-1.0); Blood Urea Nitrogen 12 MG/DL (7-18); Calcium 8.8 MG/DL (8.5-10.1); Estimated Glom Filtration Rate 134 ML/MIN; Ferritin 513.9 ng/ml (8-252); Glucose 105 MG/DL (74-106); Osmolality,Calculated 280.3 MOS/KG (273-304); Total Protein 7.8 G/DL (6.4-8.3)
[2020-03-25] MEDS ORDERED: DEXAMETHASONE 4 MG/1 ML VIAL IV STA (20:10)
[2020-03-25] MEDS ORDERED: AZITHROMYCIN INJ 500 MG in SODIUM CHLORIDE 0.9% 250 ML IV STA (20:10)
[2020-03-25] MEDS ORDERED: ACETAMINOPHEN 325 MG TABLET PO PRN (20:20)
[2020-03-25] MEDS ORDERED: diphenhydrAMINE CAP 25 MG CAPSULE PO PRN (20:20)
[2020-03-25] MEDS ORDERED: ONDANSETRON 4 MG/2 ML VIAL IV PRN (20:20)
[2020-03-25] MEDS ORDERED: NICOTINE 21 MG/24 HR PATCH TRANSDERM PRN (20:20)
[2020-03-25] MEDS ORDERED: GLUCAGON 1 MG VIAL IM PRN (20:20)
[2020-03-25] MEDS ORDERED: DEXTROSE 50% 25 GM/50 ML VIAL IV PRN (20:20)
[2020-03-25] MEDS ORDERED: hydrALAZINE 20 MG/1 ML VIAL IV PRN (20:20)
[2020-03-25] MEDS ORDERED: guaiFENesin/DM ER 600-30 MG TABLET PO PRN (20:20)
[2020-03-25] MEDS ORDERED: SODIUM CHLORIDE 0.9% 1,000 ML IV SCH (20:30)
[2020-03-25] MEDS ORDERED: cefTRIAXone 1,000 MG in SYRINGE 1 EACH IV SCH (21:00)
[2020-03-26 05:41] LABS: Basophils % 0.2 % (0.0-0.8); Hematocrit 42.2 VOL% (35.7-47.0); Hemoglobin 13.1 GM/DL (12.0-16.0); Immature Granulocytes % 0.3 %; Immature Granulocytes Absolute 0.02 #; Lymphocytes # 0.9 10*3/uL (1.4-4.0); Mean Corpuscular Volume 78.3 FL (87-102); Mean Platelet Volume 10.9 FL (9.6-12.0); Monocytes % 2.5 % (1.7-12.7); Platelet Count 215 T/CUMM (130-400); Red Blood Count 5.39 MC/CUMM (3.8-5.5); Red Cell Distribution Width 14.8 % (9.3-17.3); White Blood Count 6.4 T/CUMM (4-12)
[2020-03-26 06:03] LABS: Albumin 3.2 G/DL (3.4-5.0); Bilirubin,Total 0.6 MG/DL (0.2-1.0); Calcium 8.9 MG/DL (8.5-10.1); Osmolality,Calculated 284.1 MOS/KG (273-304); Total Protein 7.8 G/DL (6.4-8.3)
[2020-03-26] MEDS ORDERED: DEXAMETHASONE 4 MG/1 ML VIAL IV SCH (08:00)
[2020-03-26] MEDS ORDERED: ASPIRIN EC 325 MG TABLET PO SCH (09:00)
[2020-03-26] MEDS ORDERED: CHOLECALCIFEROL 1,000 UNIT TABLET PO SCH (09:00)
[2020-03-26] MEDS ORDERED: carvediloL 3.125 MG TABLET PO SCH (09:00)
[2020-03-26] MEDS ORDERED: ZINC GLUCONATE 50 MG TABLET PO SCH (09:00)
[2020-03-26] MEDS ORDERED: ASCORBIC ACID 500 MG TABLET PO SCH (09:00)
[2020-03-26] MEDS ORDERED: AZITHROMYCIN 250 MG TABLET PO SCH (09:00)
[2020-03-26] MEDS ORDERED: amLODIPine 10 MG TABLET PO SCH (09:00)
[2020-03-26 11:32] VITALS: BP 112/77
== END 2020-03-26 14:10 | disposition home or self-care (01) ==
LOC: N.EDINP 18:47 → N.ED 18:47 → N.2E 20:50
PROVIDERS: ADMIT Internal Medicine; ATTEND Internal Medicine

== ENCOUNTER 2020-03-31 18:35 | Observation (INO) ==
[2020-03-31] MEDS ORDERED: SODIUM CHLORIDE 0.9% 1,000 ML IV STA (19:04)
[2020-03-31 19:11] LABS: Basophils % 0.1 % (0.0-0.8); Eosinophils # 0.1 10*3/uL (0.0-0.87); Eosinophils % 0.4 % (0.00-10.9); Hemoglobin 14.3 GM/DL (12.0-16.0); Immature Granulocytes % 0.8 %; Immature Granulocytes Absolute 0.11 #; Lymphocytes # 1.8 10*3/uL (1.4-4.0); Lymphocytes % 12.9 % (21.3-54.2); Mean Corpuscular HGB Conc 32.5 GM/DL (32-36); Mean Corpuscular Volume 76.5 FL (87-102); Mean Platelet Volume 10.2 FL (9.6-12.0); Monocytes % 7.6 % (1.7-12.7); Neutrophils % 78.2 % (38.7-73.9); Platelet Count 456 T/CUMM (130-400); Red Blood Count 5.75 MC/CUMM (3.8-5.5); Red Cell Distribution Width 14.9 % (9.3-17.3); White Blood Count 14.3 T/CUMM (4-12)
[2020-03-31 19:42] LABS: Alanine Aminotransferase 39 U/L (13-56); Albumin 3.1 G/DL (3.4-5.0); Alkaline Phosphatase 86 U/L (45-117); Aspartate Amino Transferase 25 U/L (0-37); Bilirubin,Total < 0.39 MG/DL (0.2-1.0); Blood Urea Nitrogen 15 MG/DL (7-18); Calcium 8.8 MG/DL (8.5-10.1); Estimated Glom Filtration Rate 134 ML/MIN; Glucose 130 MG/DL (74-106); Total Protein 7.5 G/DL (6.4-8.3)
[2020-03-31 19:43] LABS: Ferritin 399.2 ng/ml (8-252)
[2020-03-31] MEDS ORDERED: METOPROLOL TARTRATE 5 MG/5 ML VIAL IV STA ×2 (20:02→21:41)
[2020-03-31] MEDS ORDERED: KETOROLAC 30 MG/1 ML VIAL ONE (21:36)
[2020-03-31] MEDS ORDERED: KETOROLAC 30 MG/1 ML VIAL IV STA (21:41)
[2020-03-31] MEDS ORDERED: DEXTROSE 50% 25 GM/50 ML VIAL IV PRN (23:23)
[2020-03-31] MEDS ORDERED: GLUCAGON 1 MG VIAL IM PRN (23:23)
[2020-03-31] MEDS ORDERED: ONDANSETRON 4 MG/2 ML VIAL IV PRN (23:23)
[2020-03-31] MEDS ORDERED: ENOXAPARIN 40 MG/0.4 ML SYRINGE SUBCUT SCH (23:30)
[2020-03-31] MEDS ORDERED: DEXTROSE 50% 25 GM/50 ML SYRINGE IV PRN (23:39)
[2020-04-01 07:59] LABS: Basophils % 0.2 % (0.0-0.8); Eosinophils # 0.1 10*3/uL (0.0-0.87); Eosinophils % 0.7 % (0.00-10.9); Hematocrit 42.9 VOL% (35.7-47.0); Hemoglobin 13.8 GM/DL (12.0-16.0); Immature Granulocytes % 0.9 %; Immature Granulocytes Absolute 0.11 #; Lymphocytes # 3.5 10*3/uL (1.4-4.0); Mean Corpuscular HGB Conc 32.2 GM/DL (32-36); Mean Corpuscular Volume 76.3 FL (87-102); Mean Platelet Volume 9.9 FL (9.6-12.0); Monocytes % 6.3 % (1.7-12.7); Neutrophils % 63.9 % (38.7-73.9); Platelet Count 410 T/CUMM (130-400); Red Blood Count 5.62 MC/CUMM (3.8-5.5); Red Cell Distribution Width 15.1 % (9.3-17.3); White Blood Count 12.6 T/CUMM (4-12)
[2020-04-01] MEDS ORDERED: carvediloL 3.125 MG TABLET PO SCH (08:00)
[2020-04-01] MEDS ORDERED: predniSONE 20 MG TABLET ONE (08:10)
[2020-04-01] MEDS ORDERED: ASPIRIN 325 MG TABLET ONE (08:12)
[2020-04-01] MEDS: predniSONE 10 MG TABLET PO SCH (08:20)
[2020-04-01 08:30] LABS: Alanine Aminotransferase 31 U/L (13-56); Albumin 2.9 G/DL (3.4-5.0); Alkaline Phosphatase 67 U/L (45-117); Aspartate Amino Transferase 17 U/L (0-37); Bilirubin,Total < 0.39 MG/DL (0.2-1.0); Blood Urea Nitrogen 12 MG/DL (7-18); Calcium 8.7 MG/DL (8.5-10.1); Estimated Glom Filtration Rate 157 ML/MIN; Ferritin 333.3 ng/ml (8-252); Glucose 82 MG/DL (74-106); HDL Cholesterol 39 MG/DL (40-60); Osmolality,Calculated 279.3 MOS/KG (273-304); Risk Ratio 4.41; Total Protein 7.3 G/DL (6.4-8.3); Triglycerides 134 MG/DL (2-150); VLDL CHOLESTEROL 26.8 MG/DL
[2020-04-01] MEDS: PANTOPRAZOLE 40 MG TABLET PO SCH (08:50)
[2020-04-01] MEDS ORDERED: amLODIPine 10 MG TABLET PO SCH (09:00)
[2020-04-01] MEDS ORDERED: ASPIRIN EC 325 MG TABLET PO SCH (09:00)
[2020-04-01] MEDS ORDERED: DIGOXIN 0.5 MG/2 ML AMP IV ONE ×2 (09:39→12:00)
[2020-04-01] MEDS ORDERED: POTASSIUM CHLORIDE 20 MEQ TABLET PO ONE (09:41)
[2020-04-01] MEDS ORDERED: MAGNESIUM SULF RIDER 2 GM in PREMIX 1 EACH IV STA (09:42)
[2020-04-01] MEDS ORDERED: carvediloL 3.125 MG TABLET ONE (09:55)
[2020-04-01] MEDS ORDERED: MAGNESIUM SULF RIDER 50 ML IV ONE (09:55)
[2020-04-01] MEDS: carvediloL 6.25 MG TABLET PO SCH ×2 (09:57→21:38)
[2020-04-01] MEDS: APIXABAN 5 MG TABLET PO SCH ×2 (10:20→21:39)
[2020-04-01] MEDS: CEFDINIR 300 MG CAPSULE PO SCH ×2 (10:20→21:39)
[2020-04-01] MEDS: ASCORBIC ACID 500 MG TABLET PO SCH ×2 (10:21→21:39)
[2020-04-01] MEDS: ACETAMINOPHEN 325 MG TABLET PO PRN (12:54)
[2020-04-01] MEDS ORDERED: DILTIAZEM CD 240 MG CAPSULE PO ONE (17:23)
[2020-04-01] MEDS ORDERED: METOPROLOL TARTRATE 5 MG/5 ML VIAL IV PRN (20:30)
[2020-04-02 06:39] LABS: Basophils % 0.2 % (0.0-0.8); Calcium 8.5 MG/DL (8.5-10.1); Eosinophils # 0.1 10*3/uL (0.0-0.87); Eosinophils % 0.5 % (0.00-10.9); Hematocrit 42.7 VOL% (35.7-47.0); Hemoglobin 13.3 GM/DL (12.0-16.0); Immature Granulocytes Absolute 0.15 #; Lymphocytes # 3.8 10*3/uL (1.4-4.0); Lymphocytes % 24.9 % (21.3-54.2); Mean Corpuscular HGB Conc 31.1 GM/DL (32-36); Mean Corpuscular Volume 78.3 FL (87-102); Mean Platelet Volume 10.7 FL (9.6-12.0); Monocytes % 8.3 % (1.7-12.7); Neutrophils % 65.1 % (38.7-73.9); Osmolality,Calculated 282.1 MOS/KG (273-304); Platelet Count 424 T/CUMM (130-400); Red Blood Count 5.45 MC/CUMM (3.8-5.5); Red Cell Distribution Width 15.2 % (9.3-17.3); White Blood Count 15.4 T/CUMM (4-12)
[2020-04-02] MEDS: ASCORBIC ACID 500 MG TABLET PO SCH ×2 (08:57→20:00)
[2020-04-02] MEDS: predniSONE 10 MG TABLET PO SCH (08:57)
[2020-04-02] MEDS: DILTIAZEM CD 240 MG CAPSULE PO SCH (08:57)
[2020-04-02] MEDS: APIXABAN 5 MG TABLET PO SCH ×2 (08:57→20:00)
[2020-04-02] MEDS: carvediloL 6.25 MG TABLET PO SCH ×2 (08:57→20:00)
[2020-04-02] MEDS: PANTOPRAZOLE 40 MG TABLET PO SCH (08:57)
[2020-04-02] MEDS: CEFDINIR 300 MG CAPSULE PO SCH ×2 (08:57→20:00)
[2020-04-02] MEDS ORDERED: amLODIPine 5 MG TABLET PO SCH (09:00)
[2020-04-02] MEDS: ACETAMINOPHEN 325 MG TABLET PO PRN (11:37)
[2020-04-03 06:36] LABS: Basophils # 0.1 10*3/uL (0.0-0.2); Basophils % 0.5 % (0.0-0.8); Eosinophils # 0.1 10*3/uL (0.0-0.87); Eosinophils % 1.1 % (0.00-10.9); Hematocrit 42.2 VOL% (35.7-47.0); Hemoglobin 13.3 GM/DL (12.0-16.0); Immature Granulocytes % 1.2 %; Immature Granulocytes Absolute 0.15 #; Lymphocytes # 4.7 10*3/uL (1.4-4.0); Lymphocytes % 37.3 % (21.3-54.2); Mean Corpuscular HGB Conc 31.5 GM/DL (32-36); Mean Corpuscular Volume 78.1 FL (87-102); Mean Platelet Volume 9.8 FL (9.6-12.0); Monocytes % 6.5 % (1.7-12.7); Neutrophils % 53.4 % (38.7-73.9); Platelet Count 382 T/CUMM (130-400); Red Cell Distribution Width 15.2 % (9.3-17.3); White Blood Count 12.6 T/CUMM (4-12)
[2020-04-03 06:57] LABS: Calcium 8.6 MG/DL (8.5-10.1); Osmolality,Calculated 285.8 MOS/KG (273-304)
[2020-04-03] MEDS ORDERED: POTASSIUM CHLORIDE 20 MEQ TABLET PO ONE (07:50)
[2020-04-03] MEDS: APIXABAN 5 MG TABLET PO SCH (08:50)
[2020-04-03] MEDS: DILTIAZEM CD 240 MG CAPSULE PO SCH (08:50)
[2020-04-03] MEDS: CEFDINIR 300 MG CAPSULE PO SCH (08:50)
[2020-04-03] MEDS: carvediloL 6.25 MG TABLET PO SCH (08:50)
[2020-04-03] MEDS: predniSONE 10 MG TABLET PO SCH (08:50)
[2020-04-03] MEDS: PANTOPRAZOLE 40 MG TABLET PO SCH (08:50)
[2020-04-03] MEDS: ASCORBIC ACID 500 MG TABLET PO SCH (08:50)
[2020-04-03] MEDS ORDERED: FLUTICASONE 50 MCG NASAL SPRAY 16 GM BOTTLE BOTH NARES SCH (09:00)
[2020-04-03 11:21] VITALS: BP 149/92
== END 2020-04-03 15:30 | disposition home or self-care (01) ==
LOC: N.ED 18:35 → N.EDINP 18:35 → SUATTDRO 23:23 → N.2E 04-01 13:30
PROVIDERS: ADMIT Family Medicine; ATTEND Internal Medicine